=== PATIENT | female | born 1990 ===

== ENCOUNTER 2016-08-16 21:40 | Emergency (ER) | payer MEDICAID ==
[2016-08-16 22:19] VITALS: BP 123/66; PULSE 85; RESP 16; O2SAT 100
[2016-08-16 23:43] LABS: BASO % 0.4 % (0.0-2.0); EOS # 0.1 K/uL (0.0-0.7); EOS % 1.3 % (0.0-4.0); HEMATOCRIT 40.4 % (34.0-47.0); LYMPH # 3.3 K/uL (1.0-4.3); LYMPH % 33.7 % (20.0-40.0); MEAN CELL VOLUME 86.4 fl (81.0-99.0); MEAN CORPUSCULAR HEMOGLOBIN 28.8 pg (27.0-31.0); MEAN CORPUSCULAR HGB CONC 33.3 g/dL (33.0-37.0); MONO # 0.8 K/uL (0.0-0.8); MONO % 7.8 % (0.0-10.0); NEUT # 5.5 K/uL (1.8-7.0); NEUT % 56.8 % (50.0-75.0); RED CELL DISTRIBUTION WIDTH 13.5 % (11.5-14.5); WHITE BLOOD COUNT 9.8 K/uL (4.8-10.8)
--- NOTE | 2016-08-16 23:47 | ED PDOC ---
HPI: Abdomen Time Seen by Provider: 08/16/16 23:16 Chief Complaint (Nursing): Abdominal Pain Chief Complaint (Provider): vaginal bleeding, pelvic pain History Per: Patient History/Exam Limitations: no limitations Current Symptoms Are (Timing): Still Present Location Of Pain/Discomfort: LLQ, Suprapubic Quality Of Discomfort: Cramping Associated Symptoms: denies: Chest Pain, Constipation, Urinary Symptoms Exacerbating Factors: None Alleviating Factors: None Last Bowel Movement: Today Additional Complaint(s): 26yo female c/o pelvic pain and intermittent cramping since July 25. States had spontaneous in may, [facility]. States felt well in June, then cramping and spotting started on July 25. Denies weakness, numbness, fever, GI symptoms or syncope. Denies dysparenuria or vaginal discharge. Past Medical History Reviewed: Historical Data, Nursing Documentation, Vital Signs Vital Signs: Last Vital Signs Temp Pulse 85 08/16/16 22:17 Resp 16 08/16/16 22:17 BP 123/66 08/16/16 22:17 Pulse Ox 100 08/16/16 22:17 - Medical History PMH: Asthma Other PMH: (3 terminations, 1 miscarriage) - Surgical History Surgical History: No Surg Hx - Family History Family History: States: Unknown Family Hx - Living Arrangements Living Arrangements: With Family - Allergies Allergies/Adverse Reactions: Allergies Allergy/AdvReac Type Severity Reaction Status Date / Time No Known Allergies Allergy Verified 08/16/16 22:17 Review of Systems ROS Statement: Except As Marked, All Systems Reviewed And Found Negative Constitutional: Negative for: Fever, Chills Cardiovascular: Negative for: Chest Pain, Palpitations Respiratory: Negative for: Cough, Shortness of Breath Gastrointestinal: Negative for: Nausea, Vomiting Genitourinary Female: Positive for: Vaginal Bleeding, Pelvic Pain. Negative for : Dysuria, Frequency, Vaginal Discharge Musculoskeletal: Negative for: Neck Pain, Shoulder Pain Skin: Negative for: Rash, Lesions, Jaundice Neurological: Negative for: Weakness, Numbness Physical Exam - Reviewed Nursing Documentation Reviewed: Yes Vital Signs Reviewed: Yes - Physical Exam Appears: Positive for: Well, Non-toxic, No Acute Distress Head Exam: Positive for: ATRAUMATIC, NORMAL INSPECTION, NORMOCEPHALIC Skin: Positive for: Normal Color, Warm, DRY Eye Exam: Positive for: EOMI, Normal appearance, PERRL ENT: Positive for: Normal ENT Inspection Neck: Positive for: Normal, Painless ROM Cardiovascular/Chest: Positive for: Regular Rate, Rhythm Respiratory: Positive for: CNT, Normal Breath Sounds Gastrointestinal/Abdominal: Positive for: Bowel Sounds, Soft, Tenderness (mild L lower abd tenderness). Negative for: Guarding, Rebound, Asicites Back: Positive for: Normal Inspection Extremity: Positive for: Normal ROM Neurologic/Psych: Positive for: Alert, Oriented. Negative for: Motor/Sensory Deficits - Laboratory Results Result Diagrams: 08/16/16 23:37 - ECG O2 Sat by Pulse Oximetry: 100 Medical Decision Making Medical Decision Making: Workup initiated for pelvic pain in female, Upreg negative in ED. Obtain bloodwork / US r/o ovarian torsion/ cyst/ mass vs other. Pt states had recent pelvic exam. Disposition - Clinical Impression Clinical Impression: Pelvic pain, Menorrhagia - Patient ED Disposition Is Patient to be Admitted: Transfer of Care - Disposition Disposition: Transfer of Care Disposition Time: 23:49 Patient Signed Over To: Vitaliy Morrow Handoff Comments: pending US, bloodwork and dispo
[2016-08-16 23:56] LABS: ALB/GLOB RATIO 1.5 (1.0-2.1); ALKALINE PHOSPHATASE 41 U/L (38-126); ALT/SGPT 27 U/L (9-52); AST/SGOT 26 U/L (14-36); BLOOD UREA NITROGEN 13 mg/dl (7-17); CALCIUM 9.8 mg/dL (8.4-10.2); CARBON DIOXIDE 28 mmol/L (22-30); CHLORIDE 101 mmol/L (98-107); GFR AFRICAN-AMERICAN > 60; GLUCOSE,RANDOM 78 mg/dL (65-105); POTASSIUM 3.7 MMOL/L (3.6-5.0); SODIUM 142 mmol/l (132-148); TOTAL PROTEIN 8.5 G/DL (6.3-8.2)
--- NOTE | 2016-08-17 00:49 | US ---
EXAM: US Pelvis Complete, Transabdominal CLINICAL HISTORY: 26 years old, female; Signs and symptoms; Menstruation abnormalities; Irregular menstruation; Additional info: Pelvic pain bleeding, termination preg may TECHNIQUE: Real-time transabdominal pelvic ultrasound (complete) with image documentation. COMPARISON: No relevant prior studies available. FINDINGS: Uterus/cervix: Uterus measures 8.2 x 3.7 x 4.7 cm in size. No myometrial mass. Endometrium: 0.6 cm in thickness. Right ovary: 4.6 x 1.8 x 3.9 cm in size. 3.4 x 1.1 x 3.4 cm anechoic lesion. Small follicles. Normal flow. Left ovary: 2.5 x 1.4 x 2.3 cm in size. No mass. Small follicles. Normal flow. Free fluid: No significant free fluid. Bladder: Unremarkable as visualized. IMPRESSION: 1. RIGHT ovarian cyst. 2. Incidental/non-acute findings are described above. EXAM: US Pelvis, Transvaginal CLINICAL HISTORY: 26 years old, female; Signs and symptoms; Menstruation abnormalities; Irregular menstruation; Additional info: Pelvic pain bleeding, termination preg may TECHNIQUE: Real-time transvaginal pelvic ultrasound (complete) with image documentation. Transvaginal imaging was used for better evaluation of the endometrium and adnexa. COMPARISON: No relevant prior studies available. FINDINGS: Uterus/cervix: Uterus measures 8.2 x 3.7 x 4.7 cm in size. No myometrial mass. Endometrium: 0.6 cm in thickness. Right ovary: 4.6 x 1.8 x 3.9 cm in size. 3.4 x 1.1 x 3.4 cm anechoic lesion. Small follicles. Normal flow. Left ovary: 2.5 x 1.4 x 2.3 cm in size. No mass. Small follicles. Normal flow. Free fluid: No significant free fluid. Bladder: Empty bladder which cannot be evaluated with this probe.
--- NOTE | 2016-08-17 01:30 | ED PDOC ---
- Laboratory Results Result Diagrams: 08/16/16 23:37 08/16/16 23:37 - ECG O2 Sat by Pulse Oximetry: 100 Medical Decision Making Medical Decision Making: Patient s/o from Dr. Malik at 0000 pending US. 0049: US Pelvis impression: 1. RIGHT ovarian cyst. 0128: Results explained to patient who verbalized understanding. Instructed to f /u w/ [employer]OR BILL[employer]ING and stable for d/c. Dx: right ovarian cyst, menorrhagia, pelvic pain Rx: naprosyn stable Scribe Attestation: Documented by Shanda Iqbal acting as a scribe for Vitaliy Morrow MD. Provider Scribe Attestation: All medical record entries made by the Scribe were at my direction and personally dictated by me. I have reviewed the chart and agree that the record accurately reflects my personal performance of the history, physical exam, medical decision making, and the department course for this patient. I have also personally directed, reviewed, and agree with the discharge instructions and disposition. Disposition Counseled Patient/Family Regarding: Studies Performed, Diagnosis, Need For Followup, Rx Given - Clinical Impression Clinical Impression: Pelvic pain, Menorrhagia, Ovarian cyst - POA Present On Arrival: None - Disposition Disposition: Routine/Home Disposition Time: 01:28 Condition: STABLE Additional Instructions: Please follow up with your Food Services Manager in 2 days Prescriptions: Naproxen [Naprosyn] 500 mg PO Q12 #14 tab Instructions: Ovarian Cyst (ED)
== END 2016-08-17 01:23 | disposition home or self-care (01) ==
LOC: H.ER 21:40
DX: R10.2 Pelvic and perineal pain (principal); N92.0 Excessive and frequent menstruation with regular cycle; N83.201 Unspecified ovarian cyst, right side